=== PATIENT | male | born 1985 | race Caucasian/White ===

== ENCOUNTER 2020-03-11 17:13 | Emergency (ER) | payer OTHER ==
[~2020-03-11] VITALS: Ht 185.4 cm; Wt 108.9 kg
[2020-03-11] MEDS ORDERED: BACTRIM DS TAB1 EACH PO (17:38)
== END 2020-03-11 17:50 | disposition home or self-care (01) ==
LOC: ED 17:13
DX: L02.211 Cutaneous abscess of abdominal wall (principal); F17.200 Nicotine dependence, unspecified, uncomplicated
CPT/HCPCS: 99282

== ENCOUNTER 2021-01-25 23:04 | Emergency (ER) | payer OTHER ==
[~2021-01-25] VITALS: Ht 185.4 cm; Wt 108.9 kg
[~2021-01-25 23:04] MED LIST: BACTRIM DS TAB1 EACH PO
== END 2021-01-26 01:07 | disposition home or self-care (01) ==
LOC: ED 23:04
DX: S93.401A Sprain of unspecified ligament of right ankle, initial encounter (principal); X58.XXXA Exposure to other specified factors, initial encounter; F17.200 Nicotine dependence, unspecified, uncomplicated
CPT/HCPCS: 73610; 96372; 99283-25; J1885

== ENCOUNTER 2021-01-29 21:19 | Emergency (ER) | payer OTHER ==
[~2021-01-29] VITALS: Ht 185.4 cm; Wt 108.9 kg
--- OUTSIDE RECORDS SUMMARY | 2021-01-29 21:22 | XMS ---
PreManage Notification: [employer] Helper Events No recent Security Events currently on file CRITERIA MET - [facility] - 2 Visits in 30 Days CARE PROVIDERS There are no care providers on record at this time. Nataliya has no Care Guidelines for this patient. [facility]12 MO[facility] NOTE: Visits indicate total known visits. ED/C VISIT TRACKING (12 MO.) 01/29/2021 21:[address] [facility] TYPE: Emergency COMPLAINT: - LT ANKLE SWELLING 01/25/2021 23:04 [facility] TYPE: Emergency COMPLAINT: - RT ANKLE PAIN DIAGNOSES: - Nicotine dependence, unspecified, uncomplicated - Pain in right ankle and joints of right foot - Exposure to other specified factors, initial encounter - Sprain of unspecified ligament of right ankle, initial encounter 03/11/2020 17:14 [facility] [place] TYPE: Emergency COMPLAINT: - POSS SPIDER BITE DIAGNOSES: - Cutaneous abscess of abdominal wall - Nicotine dependence, unspecified, uncomplicated INPATIENT VISIT TRACKING (12 MO.) No inpatient visits to display in this time frame [email or web address]
[2021-01-30] MEDS ORDERED: DOXYCYCLINE HY100 MG PO (00:22)
== END 2021-01-30 00:35 | disposition home or self-care (01) ==
LOC: ED 21:19
DX: L03.116 Cellulitis of left lower limb (principal); F17.200 Nicotine dependence, unspecified, uncomplicated
CPT/HCPCS: 73610; 99283-25